=== PATIENT | female | born 1985 | race American Indian/Alaskan Native ===

== ENCOUNTER 2019-11-01 04:50 | Inpatient (IN) | payer OTHER, SELFPAY ==
[~2019-11-01] VITALS: Ht 162.6 cm; Wt 98.9 kg
[~2019-11-01 04:50] MED LIST: HYDROmorphone 1 MG/ML AMP IVP PRN; diphenhydrAMINE 50 MG/ML VIAL IVP PRN
[2019-11-01] MEDS ORDERED: LACTATED RINGERS 1,000 ML IV SCH (05:30)
[2019-11-01 06:27] LABS: ALBUMIN 2.3 g/dL (3.4-5.0); ANION GAP 14.1 (8-16); CARBON DIOXIDE 21.3 mmol/L (21-32); CREATININE 0.6 mg/dL (0.6-1.3); POTASSIUM 3.4 mmol/L (3.5-5.1); TOTAL BILIRUBIN 0.2 mg/dL (0.0-1.0)
[2019-11-01 06:40] LABS: BASOPHILS # (AUTO) 0.1 K/uL (0.00-0.22); BASOPHILS % (AUTO) 0.6 % (0.0-2.0); EOSINOPHILS # (AUTO) 0.3 K/uL (0-0.4); EOSINOPHILS % (AUTO) 3.2 % (0.0-4.0); HEMATOCRIT 32.5 % (36-48); LYMPHOCYTES # (AUTO) 1.5 K/uL (2.5-16.5); LYMPHOCYTES % (AUTO) 15.8 % (20.5-51.1); MEAN CORPUSCULAR HEMOGLOBIN 31 pg (27-31); MEAN CORPUSCULAR HGB CONC 34 g/dL (33-37); MEAN CORPUSCULAR VOLUME 91.3 fL (80-94); MONOCYTES # (AUTO) 0.7 K/uL (0.8-1.0); MONOCYTES % (AUTO) 7.3 % (1.7-9.3); NEUTROPHILS % (AUTO) 73.1 % (42.2-75.2); PLATELET COUNT (AUTO) 318 K/uL (140-450); RED BLOOD CELL COUNT(AUTO) 3.56 MIL/uL (4.20-5.40); RED CELL DISTRIBUTION WIDTH 14.4 % (11.6-13.7); WHITE BLOOD COUNT (AUTO) 9.6 K/uL (4.8-10.8)
[2019-11-01 06:43] LABS: BARBITURATE, URINE NEGATIVE ng/ml (NEG <=200); BENZODIAZEPINE, URINE NEGATIVE ng/mL (NEG <=200); CANNABINOID, URINE POSITIVE ng/mL (NEG <=50); COCAINE, URINE NEGATIVE ng/mL (NEG <=300); OPIATE, URINE NEGATIVE ng/mL (NEG <=2000); PHENCYCLIDINE SCREEN,URINE NEGATIVE ng/mL (NEG <=25)
[2019-11-01 06:51] LABS: BILIRUBIN,URINE 1+ (NEGATIVE); BLOOD, URINE 1+ (NEGATIVE); COLOR,URINE YELLOW (YELLOW); LEUKOCYTE ESTERASE ,URINE 1+ (NEGATIVE); NITRITE, URINE NEGATIVE (NEGATIVE); PH,URINE 6.5 (5.0-9.0); UGLUCOSE NEGATIVE (NEGATIVE)
[2019-11-01 07:06] LABS: APPEARANCE,URINE SLIGHTLY HAZY (CLEAR)
[2019-11-01 07:09] LABS: CALCIUM OXALATE CRYSTALS,UR 0-10 /HPF (None Seen); RBC,URINE 0-5 /HPF (0-5); YEAST,URINE Rare /HPF (None Seen)
[2019-11-01] MEDS ORDERED: CITRIC ACID/SODIUM CITRATE 30 ML UDC PO SCH ×2 (07:35→14:00)
[2019-11-01] MEDS ORDERED: fentaNYL 0.05 MG/ML VIAL IVP PRN (08:05)
--- NOTE | 2019-11-01 08:38 | NUR ---
PATIENT HAS BEEN SCREENED AND CATEGORIZED LOW NUTRITION RISK. PATIENT WILL BE SEEN WITHIN 7 DAYS OF ADMISSION. 11/07/[address]
[2019-11-01 11:19] VITALS: BP 116/64
[2019-11-01] MEDS ORDERED: ceFAZolin 1,000 MG VIAL ONE (12:59)
[2019-11-01] MEDS ORDERED: CITRIC ACID/SODIUM CITRATE 30 ML UDC ONE (13:00)
[2019-11-01] MEDS ORDERED: MORPHINE PRES FREE 10 MG/10 ML AMP IV ONE (13:34)
[2019-11-01] MEDS ORDERED: diphenhydrAMINE 50 MG/ML VIAL ONE (13:35)
[2019-11-01] MEDS ORDERED: ONDANSETRON 4 MG/2 ML VIAL ONE ×2 (13:35→13:45)
[2019-11-01] MEDS ORDERED: METOCLOPRAMIDE 10 MG/2 ML INJ VIAL ONE (13:45)
[2019-11-01] MEDS ORDERED: OXYTOCIN 10 UNITS/ML VIAL ONE (13:45)
[2019-11-01] MEDS: OXYTOCIN 20 UNITS/LR PREMIX 1,000 ML IV ONE ×2 (15:18→15:30)
[2019-11-01] MEDS ORDERED: KETOROLAC 30 MG/ML VIAL IVP SCH (16:00)
[2019-11-01] MEDS ORDERED: OXYTOCIN 10 UNITS in LACTATED RINGERS 1,000 ML IV SCH (17:43)
[2019-11-01] MEDS ORDERED: METHYLERGONOVINE 0.2 MG/ML AMP IM PRN (17:45)
[2019-11-01] MEDS ORDERED: MEASLES, MUMPS, AND RUBELLA 1 VIAL SQVAC PRN (17:45)
[2019-11-01] MEDS ORDERED: KETOROLAC 30 MG/ML VIAL IM/IVP SCH (18:00)
[2019-11-01] MEDS ORDERED: KETOROLAC 30 MG/ML VIAL IVP PRN (18:00)
[2019-11-01] MEDS ORDERED: CARBOPROST 250 MCG/ML AMP IM PRN (18:45)
[2019-11-01] MEDS ORDERED: PROMETHAZINE 25 MG/ML VIAL IVP PRN (18:45)
[2019-11-01] MEDS ORDERED: OXYTOCIN 20 UNITS/LR PREMIX 1,000 ML IV ONE (22:27)
[2019-11-01] MEDS: OXYTOCIN 20 UNITS in LACTATED RINGERS 1,000 ML IV SCH (23:47)
[2019-11-02 06:51] LABS: BASOPHILS # (AUTO) 0.1 K/uL (0.00-0.22); BASOPHILS % (AUTO) 0.6 % (0.0-2.0); EOSINOPHILS # (AUTO) 0.2 K/uL (0-0.4); EOSINOPHILS % (AUTO) 2.2 % (0.0-4.0); HEMATOCRIT 29.5 % (36-48); HEMOGLOBIN 9.8 g/dL (12.0-16.0); LYMPHOCYTES # (AUTO) 1.1 K/uL (2.5-16.5); LYMPHOCYTES % (AUTO) 12.3 % (20.5-51.1); MEAN CORPUSCULAR HEMOGLOBIN 31 pg (27-31); MEAN CORPUSCULAR HGB CONC 33 g/dL (33-37); MONOCYTES # (AUTO) 0.5 K/uL (0.8-1.0); MONOCYTES % (AUTO) 5.3 % (1.7-9.3); NEUTROPHILS # (AUTO) 6.9 K/uL (1.8-7.7); NEUTROPHILS % (AUTO) 79.6 % (42.2-75.2); PLATELET COUNT (AUTO) 274 K/uL (140-450); RED CELL DISTRIBUTION WIDTH 14.4 % (11.6-13.7); WHITE BLOOD COUNT (AUTO) 8.7 K/uL (4.8-10.8)
[2019-11-02 06:52] LABS: RAPID PLASMA REAGIN NON-REACTIVE (Non Reactiv)
[2019-11-02] MEDS ORDERED: OXYTOCIN 20 UNITS/LR PREMIX 1,000 ML IV ONE (07:04)
[2019-11-02] MEDS ORDERED: oxyCODONE/APAP 5/325 MG 1 TAB TAB PO PRN (08:00)
[2019-11-02] MEDS: OXYTOCIN 20 UNITS in LACTATED RINGERS 1,000 ML IV SCH (08:20)
[2019-11-02] MEDS ORDERED: BISACODYL 10 MG SUPP RC SCH (09:00)
--- NOTE | 2019-11-03 10:34 | NUR ---
VICE PRESIDENT OF COMMUNICATIONS INTERVENTION & DC PLANNING SW met with 34 y/o female who was admitted to [facility] for . SS referral initiated due to patient being positive for meth, marijuana and homelessness. Per nursing staff, CPS were contacted, spoke to the patient and are waiting for court-hold for the . Maegan met with pt at the bedside. Pt was a&o x4, mood labile with a flat affect, able to engage in a conversation however answers were short and vague. Pt reported she's been staying at the [facility] at [address] [place] [address] and will be returning there upon DC. Pt refused to discuss finances and/or support system however stated her dad could help with transportation if she's DC after 5pm. Patient was screened for COVID19 and results were negative. Pt has wether appropriate clothing, appropriate insurance coverage. Pt reports she's independent with care and reported she's coping well with the situation. Pt refused to discuss substance abuse hx and declined any referrals. Sw reminded patient to call the hospital if she needs any referrals in the future. Nursing staff informed. Cheryl Angel, FADY/GINNY Ext [phone]
[2019-11-03] MEDS ORDERED: CAMERA MC ONE (15:36)
== END 2019-11-03 16:25 | disposition home or self-care (01) | DRG 540 ==
LOC: MLD 04:50 → EEVIPCON 04:50 → MFCC 16:00
PROVIDERS: ADMIT Obstetrics & Gynecology; ATTEND Obstetrics & Gynecology
PROC: 10D00Z1 Extraction of Products of Conception, Low, Open Approach (ICD-10-PCS; principal; 2019-11-01 13:30)
DX: O34.211 Maternal care for low transverse scar from previous cesarean delivery (principal); O99.324 Drug use complicating childbirth; Z37.0 Single live birth; F15.90 Other stimulant use, unspecified, uncomplicated; F12.90 Cannabis use, unspecified, uncomplicated; O99.334 Smoking (tobacco) complicating childbirth; O77.0 Labor and delivery complicated by meconium in amniotic fluid; Z3A.39 39 weeks gestation of pregnancy; Z03.818 Encounter for observation for suspected exposure to other biological agents ruled out; Z87.09 Personal history of other diseases of the respiratory system
CPT/HCPCS: 36415; 76805; 80053; 80305; 81001; 85025; 86592; 86762; 86886; 86900; 86901; 87086; 87653-90; J0690; J1200; J1885; J2270; J2405; J2590; J2765; J3010; J7060; J7120; Q0092; U0002